=== PATIENT | male | born 1965 | race Caucasian/White ===

== ENCOUNTER 2024-11-10 02:09 | Emergency (ER) | payer BC, SELFPAY ==
[2024-11-10 02:13] VITALS: BP 140/90
[2024-11-10 04:30] LABS: % Basophils 0.5 % (0-2); % Eosinophils 2.8 % (0-6); % Immature Granulocytes 0.5 % (0-0.5); % Lymphocytes 14.1 % (20.5-51.1); % Monocytes 10.1 % (1.7-9.3); Absolute Eosinophils 0.3 10^3/uL (0-0.7); Absolute Lymphocytes 1.3 10^3/uL (1.2-3.4); Absolute Monocytes 0.9 10^3/uL (0.1-0.6); Absolute Neutrophils 6.4 10^3/uL (1.4-6.5); Hematocrit 47.3 % (39.0-52.0); Hemoglobin 16.9 g/dL (13.0-18.0); Mean Corp Hgb Conc. 35.7 g/dL (33.0-37.0); Mean Corpuscular Hgb 32.7 pg (27.0-31.0); Mean Corpuscular Volume 91.5 fL (80.0-94.0); Mean Platelet Volume 10.5 fL (7.4-10.4); Nucleated Red Blood Cells % 0 % (-); Platelet Count 138 10^3/uL (130-400); Red Blood Cell Count 5.17 10^6/uL (4.70-6.10); Red Cell Dist. Width 12.8 % (11.5-14.5); White Blood Cell Count 8.9 10^3/uL (4.8-10.8)
[2024-11-10 04:42] VITALS: BMI 38.0
[2024-11-10 04:45] VITALS: BP 147/101
[2024-11-10 04:46] VITALS: BP 147/101
[2024-11-10 06:04] LABS: Urine Albumin Negative (Neg - Trace); Urine Bilirubin Negative (Negative); Urine Character Cloudy (Clear); Urine Color Yellow; Urine Glucose 1+ (Negative); Urine Ketone Negative (Negative); Urine Leukocyte Negative (Negative); Urine Nitrite Negative (Negative); Urine Occult Blood Negative (Negative); Urine Urobilinogen 3+ (Neg - 1+)
--- NOTE | 2024-11-10 06:06 | ED.GENMED ---
History of Present Illness
General
Chief Complaint: Abdominal Pain
Source: patient
Exam Limitations: none
Time Seen by Provider: 11/10/24 05:57
History of Present Illness
History of Present Illness:
See MDM
Past History
Past History
ED Past Medical History: None
ED Past Surgical History: Other (Hernia repair)
Social History
Tobacco: Non-smoker
Alcohol: None
Phy Exam
Physical Exam
Physical Exam:
See MDM
Course
Orders/Labs/Results
Orders:
Orders
11/10/24 02:19
EKG [Electrocardiogram (*1)] Urgent
Reason for Study: Abdominal Pain
EKG- Treatment ONCE
11/10/24 04:14
Complete Blood Count/With Diff Urgent
11/10/24 04:56
US Abdomen Complete/Upper Urgent
Comment:
Reason For Exam: upper abd pain
11/10/24 05:01
Comprehensive Metabolic Panel Urgent
Lipase Urgent
Comment: ADD ON
Troponin I Urgent
Urinalysis Reflex To Culture Urgent
Date Specimen was Collected: 11/10/24
Time Specimen was Collected: 04:59
Abnormal Lab Results
11/10/24 11/10/24
04:14 05:01
MCH 32.7 H pg
(27.0-31.0)
MPV 10.5 H fL
(7.4-10.4)
Absolute Monos (auto) 0.9 H 10^3/uL
(0.1-0.6)
Lymphocytes % 14.1 L %
(20.5-51.1)
Monocytes % 10.1 H %
(1.7-9.3)
Glucose 134 H mg/dl
(70-99)
Total Bilirubin 3.1 H mg/dl
(0.2-1.3)
AST 272 H U/L
(17-59)
ALT 164 H U/L
(0-50)
Urine Urobilinogen 3+ A
(Neg - 1+)
Urine Glucose 1+ A
(Negative)
11/10/24 04:14
11/10/24 05:01
Vital Signs
Initial and Last Documented VS:
Initial Vital Signs
Temp Pulse Resp BP Pulse Ox
97.9 F 92 22 140/90 100
11/10/24 02:13 11/10/24 02:13 11/10/24 02:13 11/10/24 02:13 11/10/24 02:13
Last Documented Vital Signs
Temp Pulse Resp BP Pulse Ox
98.1 F 90 16 147/101 98
11/10/24 04:45 11/10/24 04:45 11/10/24 04:45 11/10/24 04:46 11/10/24 04:46
MDM/Problems Addressed
Differential Diagnosis Includes:
HPI and MDM Narrative:
58-year-old male presenting with generalized abdominal pain. Patient states the pain significantly worsened last night around 11 PM. Blood work was started prior to my assessment. Patient received right upper quadrant ultrasound prior to my
assessment. Results still pending. On my exam, patient is extremely well-appearing nontoxic. He did have have a bowel movement prior to arrival. His nausea and abdominal pain have significantly improved without intervention.
Given that symptoms are resolving on their own, doubt surgical or infectious pathology.
Physical exam
General: Well appearing and non-toxic
HEENT: protecting airway
Neck: appears supple
CV: No evidence of cyanosis
Resp: No accessory muscle use
Abd: Non-distended. Mild right upper quadrant tenderness without rebound. Bowel sounds normal
Extremities: No deformities
Neuro: alert
Psych: Normal affect
Skin: Intact
Problems Addressed including Acute and Chronic Conditions affecting care:
1. Resolving right upper quadrant abdominal pain
Acuity: acute
Prognosis: stable
Details: Right upper quadrant ultrasound pending
Updates
Ultrasound consistent with gallstones. No evidence of acute calculus cholecystitis. Discussed follow-up with surgery
Discussed having LFTs rechecked
Differential Diagnosis (but not limited to): Symptomatic cholelithiasis, acute cholecystitis, gas pains
Testing considered: CT abdomen/pelvis
Drug therapy (if applicable): OTC meds, please see d/c instruction regarding Rx drugs
Amount and/or Complexity of Data Reviewed
Clinical info obtained from: Patient
External data reviewed: N/A
Labs I independently reviewed (but not limited to): White blood cell count normal, elevated LFTs
Radiology: Ultrasound report reviewed
Pulse Ox: not hypoxic
EKG independently reviewed: N/A
Teleradiologist: N/A
Critical Care: N/A
Risk of Complication:
Social Determinants of health: Good social support
Discussed with other providers: N/A
Escalation of Care includes Admit/Obs: After being observed in the Emergency Department, pt stable for discharge.
Occasional wrong word or 'sound a like' substitutions may have occurred due to the inherent limitations of voice recognition software. Read the chart carefully and recognize, using context, where substitutions have occurred.
*Critical Care Note
Total Time (30-74mins, 75-104mins- exclusive of procedures): Not Applicable
ED Attending Note
-
Portions of this chart may have been created with voice recognition software.� Occasional wrong word or��sound alike� substitutions may have occurred due to the inherent limitations of voice recognition software.
Discharge Plan
Departure
Patient Disposition: Home (Routine Discharge)
Date of Disposition: 11/10/24
Time of Disposition: 06:42
Patient with high blood pressure during this ER visit?: Yes
Discharge Problem:
Symptomatic cholelithiasis
Instructions: Gallstones (DC)
Prescriptions:
No Action
No Current Medications
0
Referrals:
Arnold Le MD [Active] -
UNKNOWN - PT DOES,NOT KNOW [Family Provider] -
Activity Restrictions/Additional Instructions:
Please return for any worsening symptoms.
You may return at any time if you have further concerns.
Please follow up with your doctor at the first available appointment, preferably this week. Please have your blood work reassessed. Your liver enzymes were elevated
Your symptoms could have been related to your gallstones. Please have this reassessed by the general surgeon.
Thank you for choosing [facility].
Interventions
Interventions:
*Risk Screen - Suicide Last Done: 11/10/24 02:13
*General Assessment Last Done: 11/10/24 05:03
*Neglect/Abuse Screening Last Done: 11/10/24 05:03
*ED- Fall Risk Assessment Last Done: 11/10/24 05:03
*ED COVID-19 Vaccine History Last Done: 11/10/24 05:03
EC-Najnpb-Dzbmwzpupd Assessment Last Done: 11/10/24 05:10
Discharge Date and Time
Print Language: BURUNDI[place]
[2024-11-10 06:21] LABS: ALT (SGPT) 164 U/L (0-50); AST (SGOT) 272 U/L (17-59); Albumin 4.1 g/dl (3.5-5.0); Alkaline Phosphatase 124 U/L (38-126); Blood Urea Nitrogen 18 mg/dl (9-20); Calcium 9.6 mg/dl (8.4-10.2); Carbon Dioxide 25 mmol/L (22-30); Chloride 103 mmol/L (98-107); Estimated Creatinine Clearance 122 ml/min; Glucose 134 mg/dl (70-99); Lipase 172 U/L (23-300); Potassium 4.7 mmol/L (3.5-5.1); Sodium 137 mmol/L (135-145); Total Bilirubin 3.1 mg/dl (0.2-1.3); Total Protein 6.8 g/dl (6.3-8.2); eGFR > 60.00
[2024-11-10 06:32] LABS: Troponin I < 0.012 ng/ml
[2024-11-10 07:00] VITALS: BP 138/90
== END 2024-11-10 07:00 | disposition home or self-care (01) ==
LOC: EMR 02:09
PROVIDERS: Student in an Organized Health Care Education/Training Program; EMERGENCY PHYSICIAN Student in an Organized Health Care Education/Training Program
DX: K80.20 Calculus of gallbladder without cholecystitis without obstruction (principal); R03.0 Elevated blood-pressure reading, without diagnosis of hypertension
CPT/HCPCS: 99285; 76700; 80053; 81003; 83690; 84484; 85025; 93005